=== PATIENT | female | born 1995 | race Caucasian/White ===

== ENCOUNTER 2020-11-29 13:54 | Outpatient (REF) | payer OTHER, SELFPAY | END 2020-11-29 13:55 | disposition home or self-care (01) | LOC: HO.LAB 13:54 | PROVIDERS: Visit Provider Nurse Practitioner Family | DX: J40 Bronchitis, not specified as acute or chronic (principal); Z20.822 Contact with and (suspected) exposure to COVID-19 | CPT/HCPCS: 36415; U0003 ==

== ENCOUNTER 2024-05-18 08:02 | Emergency (ER) | payer SELFPAY ==
--- NOTE | ~2024-05-18 | XR_ITS ---
EXAMINATION: XR CHEST CLINICAL INFORMATION: Cough COMPARISON: None available. TECHNIQUE: 2 views of the chest were obtained. FINDINGS: No significant abnormality is noted involving the heart, lungs, mediastinum, bony thorax or soft tissues. XR/XR chest 2V IMPRESSION: Unremarkable examination.
[2024-05-18 08:05] VITALS: BP 120/84; PULSE 87; RESP 16; TEMP 37; O2SAT 97; BMI 26.8
--- NOTE | 2024-05-18 08:09 | ECG_ITS ---
Test Reason : CHEST PAIN Blood Pressure : / mmHG Vent. Rate : 069 BPM Atrial Rate : 069 BPM P-R Int : 110 ms QRS Dur : 084 ms QT Int : 372 ms P-R-T Axes : 048 053 028 degrees QTc Int : 398 ms Sinus rhythm with sinus arrhythmia with short UT Otherwise normal ECG When compared with ECG of 01-MAY-2011 12:11, No significant change was found Referred By: Generic ED Physician Electronically Signed By:CYDNEY GRANT MD
[2024-05-18 08:46] LABS: IDNOW Serial# 08D9AD1C; Strep A Nucleic Acid Negative (Negative)
[2024-05-18 09:06] LABS: Influenza A PCR NEGATIVE (Negative); Influenza B PCR NEGATIVE (Negative); Resp Syncy Virus RNA Qual PCR NEGATIVE (Negative); SARS COV2 PCR INHOUSE NEGATIVE (Negative)
--- NOTE | 2024-05-18 11:23 | ED_ITS ---
HPI - URI/Sore Throat General Chief Complaint: Upper Respiratory Symptoms Stated Complaint: Chest pain, headache, cough Time Seen by Provider: 05/18/24 08:14 Source: patient and RN notes reviewed Mode of arrival: ambulatory Limitations: no limitations History of Present Illness ED Provider: Maye Muir PA-C HPI Narrative: This is a 29-year-old female, with a history of asthma, who presents emergency department with complaints of body aches, congestion, productive cough with green-colored phlegm, subjective fevers and chills x 3 days. Patient also endorsing headaches, sore throat as well as intermittent chest pain that only occurs with coughing. She denies any documented fevers, dizziness, blurred vision, shortness for breath, abdominal pain, nausea, vomiting or diarrhea. She did have an episode of wheezing which alleviated after using albuterol. She denies any sick contacts. No other complaints or concerns at this time. MD elicited complaint: cough, sore throat and nasal congestion Consistency: constant Description of mucous: green Able to tolerate fluids by mouth: Yes Exacerbating factors: nothing Relieving factors: nothing Associated symptoms: chest pain (Intermittent) Treatments prior to arrival: none Related Data Previous Rx's ?Medication ?Instructions ?Recorded azithromycin 250 mg tablet See Rx Instructions PO .COMPLEX #6 11/29/20 tabs Allergies Allergy/AdvReac Type Severity Reaction Status Date / Time No Known Allergies Allergy Verified 05/18/24 08:08 Review of Systems Review of Systems: Yes all other systems are reviewed and are negative Constitutional: Constitutional: Reports as per [facility] Past Medical History Attestation statement: The following information was validated with the patient. Social History Social History Advance Directives: No Advance Directives Information Provided: Yes Physical Exam Vital Signs: Vital Signs: Last Vital Signs Temp 98.6 F 05/18/24 08:05 Pulse 87 05/18/24 08:05 Resp 16 05/18/24 08:05 BP 120/84 05/18/24 08:05 Pulse Ox 97 05/18/24 08:05 O2 Del Method Room Air 05/18/24 08:05 BMI result Body Mass Index 26.8 Const: General: cooperative, comfortable and no acute distress Orientation/consciousness: patient oriented x3 Limitations: no limitations HEENT: Head: Yes normal to inspection, Yes normocephalic and Yes atraumatic Ears: hearing grossly normal bilaterally General nose exam: Normal external nose present Face and sinus: Yes normal facial exam Mouth: Normal oral and palatal mucosa present, oropharynx normal and moist mucous membranes Throat: Yes posterior oropharynx normal Eyes: General: appearance normal, both eyes and all related structures Eyelids: Yes eyelids normal Conjunctivae: conjunctivae normal Sclerae: sclerae normal Pupils: Equal, round and reactive pupils present EOM: EOMs intact bilaterally Neck: Neck: Yes normal visual inspection, Yes full ROM and Yes no lymphadenopa thy Lymphatic: no lymphadenopathy noted Chest: Chest palpation & inspection: normal inspection of the chest Resp: Effort & Inspection: normal respiratory effort and able to speak in complete sentences Auscultation: clear to auscultation bilaterally, no crackles, no rales, no rhonchi and no wheezes Cardio: Rate: regular rate Rhythm: regular rhythm Heart sounds: S1 normal heart sound present and S2 normal heart sound present GI: Other: Abdomen is soft, nontender, nondistended Inspection: Yes normal to inspection Skin: General skin exam: no rashes or lesions noted Trauma: no lacerations or abrasions Wounds: no wounds Neuro: General: patient oriented x3 and moves all extremities Cranial nerves: Yes Equal, round and reactive pupils present Extrem: General: Yes normal to inspection Right upper extremity: normal to inspection Left upper extremity: normal to inspection Right lower extremity: normal to inspection Left lower extremity: normal to inspection Course Reevaluation(s) Reevaluation #1: Chest x-ray returns, no acute consolidation or evidence of pneumonia seen. Viral swabs negative, negative strep. Symptoms likely viral in etiology. EKG nonischemic. Will discharge patient with conservative measures and given return precautions. Advised follow-up with PCP. Patient understands and agrees with plan. Patient stable for discharge. Time: 11:30 Medical Decision Making Medical Decision Making MDM Narrative: This is a 29-year-old female who presents emergency department with complaints of body aches, congestion, productive cough with green-colored sputum, subjective fevers and chills. She also endorses some chest pain which only o ccurs with cough. On arrival, vital signs within normal limits. Lungs clear to auscultation bilaterally. Differential diagnoses include bronchitis, pneumonia, URI, viral syndrome, costochondritis, reactive airway disease, asthma exacerbation. Less likely pulmonary embolism as she has no risk factors and she is PERC negative. Less likely ACS given no risk factors and pain exacerbated with cough only. Plan: Viral swabs, chest x-ray, EKG Differential Diagnosis Differential Diagnoses: The differential diagnosis associated with the presentation includes See above Lab Data MDM Lab Attestation statement: I reviewed the patient's lab results. Negative viral swabs, negative strep Labs: Lab Results 05/18/24 Range/Units 08:21 Influenza Type A (PCR) NEGATIVE (Negative) Influenza Type B (PCR) NEGATIVE (Negative) RSV RNA Qual (PCR) NEGATIVE (Negative) SARS-CoV-2 RNA (RT-PCR) NEGATIVE (Negative) S. pyogenes GrpA HEATHER Negative (Negative) Independent Interpretation I performed an independent interpretation of an: EKG Interpretation: EKG normal sinus rhythm with sinus arrhythmia at a ventricular rate of 69 beats per minute, short KS interval at 1:10 a.m., QT QTC 372/398. No ST elevation or depression. Radiology Impression Discussion of test interpretation with radiology: I have reviewed the radiologist's reading. Radiologist Impression: XR/XR chest 2V IMPRESSION: Unremarkable examination. Dictated By: Adama Blanchard MD Discharge Plan Discharge Clinical Impression: Upper respiratory infection Qualifiers: URI type: unspecified viral URI Qualified Code(s): J06.9 - Acute upper respiratory infection, unspecified Patient Disposition: Home, Self-Care Instructions: Upper Respiratory Infection (ED) Additional Instructions: You tested negative for COVID, RSV, flu, and strep throat. Your chest x-ray was normal. Your EKG was reassuring. Your symptoms are likely due to a virus. Drink plenty of fluids get plenty of rest. Alternate between ibuprofen and or Tylenol as needed for fevers and body aches. Continue taking at home albuterol inhaler as needed for symptoms. If any new or worsening symptoms occur including but not limited to chest pain, shortness of breath please return for re-evaluation. Prescriptions: No Action azithromycin 250 mg tablet See Rx Instructions PO .COMPLEX Qty: 6 0RF Rx Instructions: take 500 mg today (day 1), then 250 mg for 4 days (days 2-5) PO Print Language: Slovak
[2024-05-18 11:41] VITALS: BP 135/95; PULSE 68; RESP 18; TEMP 36.4; O2SAT 98
== END 2024-05-18 11:43 | disposition home or self-care (01) ==
PROVIDERS: Emergency Provider Emergency Medicine
DX: J06.9 Acute upper respiratory infection, unspecified (principal); R07.9 Chest pain, unspecified; R05.9 Cough, unspecified; R51.9 Headache, unspecified; J02.9 Acute pharyngitis, unspecified; R68.83 Chills (without fever)
CPT/HCPCS: 0241U; 71046; 87651; 93005; 99283

== ENCOUNTER → 2024-05-18 08:09 | Outpatient (BNV) | payer SELFPAY | PROVIDERS: Emergency Provider Emergency Medicine; Visit Provider Internal Medicine Cardiovascular Disease | DX: R07.9 Chest pain, unspecified (principal) | CPT/HCPCS: 93010 ==

== ENCOUNTER 2024-08-03 10:44 | Emergency (ER) | payer SELFPAY ==
[2024-08-03 11:17] VITALS: BP 120/86; PULSE 73; RESP 18; TEMP 36.5; O2SAT 99; BMI 26.6
--- NOTE | 2024-08-03 11:19 | ED_ITS ---
HPI - General Adult General Chief complaint: Headache Stated complaint: migraines Time Seen by Provider: 08/03/24 12:23 Related Data Previous Rx's ?Medication ?Instructions ?Recorded azithromycin 250 mg tablet See Rx Instructions PO .COMPLEX #6 11/29/20 tabs ibuprofen 400 mg tablet 400 mg PO Q6H PRN pain #20 tabs 08/03/24 Allergies Allergy/AdvReac Type Severity Reaction Status Date / Time No Known Allergies Allergy Verified 08/03/24 11:19 [facility] Social History Social History Advance Directives: No Advance Directives Information Provided: No Do you have a plan to hurt others: No Plan Physical Exam ED Vital Signs: Vital Signs - 24 hr 08/03/24 11:17 08/03/24 12:34 Temperature 97.7 F Pulse Rate 73 59 Respiratory Rate 18 16 Blood Pressure 120/86 106/70 Pulse Oximetry 99 98 Oxygen Delivery Method Room Air Room Air BMI result Body Mass Index 26.6 Course Course Course Narrative: This is an RME done by ANABEL Garcia: Additional HPI, ROS, PE not included below will be deferred to primary provider. 29yo F with hx of migraines presents with a 3 day hx of headache, N, decreased appetite. Denies fevers, chills, vision changes. Says this is like her previous migraines but she has not had one in a long time and needs medication Appearance: Alert.? Oriented X3.? No acute cardiopulmonary distress distress.?Appears uncomfortable Head: Normocephalic, atraumatic CVS: Pulses normal.? Respiratory: No respiratory distress.? Skin: ? Normal skin color. Neuro: Oriented X 3.. Medications Administered Discontinued Medications Generic Name Dose Route Start Last Admin Trade Name Freq PRN Reason Stop Dose Admin Diphenhydramine HCl 25 mg 08/03/24 11:20 08/03/24 12:28 Diphenhydramine Hcl 25 Mg Capsule PO 08/03/24 11:21 25 mg ONCE ONE Administration Ketorolac Tromethamine 15 mg 08/03/24 11:20 08/03/24 12:28 Ketorolac Tromethamine 15 Mg/Ml Vial IM 08/03/24 11:21 15 mg ONCE ONE Administration Metoclopramide HCl 10 mg 08/03/24 11:20 08/03/24 12:28 Metoclopramide Hcl 10 Mg Tablet PO 08/03/24 11:21 10 mg ONCE ONE Administration Discharge Plan Discharge Clinical Impression: Migraine Patient Disposition: Home, Self-Care Instructions: Migraine Headache (ED) Prescriptions: New ibuprofen 400 mg tablet 400 mg PO Q6H PRN (Reason: pain) Qty: 20 0RF No Action azithromycin 250 mg tablet See Rx Instructions PO .COMPLEX Qty: 6 0RF Rx Instructions: take 500 mg today (day 1), then 250 mg for 4 days (days 2-5) PO Referrals: [facility] [Physician] - 08/08/24 Stand Alone Forms: Work/School Release Print Language: Croatian
[2024-08-03] MEDS: diphenhydrAMINE HCL 25 MG CAPSULE PO (12:28)
[2024-08-03] MEDS: Metoclopramide HCl 10 MG TABLET PO (12:28)
[2024-08-03] MEDS: Ketorolac Tromethamine 15 MG/ML VIAL IM (12:28)
[2024-08-03 12:34] VITALS: BP 106/70; PULSE 59; RESP 16; O2SAT 98
--- NOTE | 2024-08-03 12:56 | ED.HA ---
HPI - Headache General Chief Complaint: Headache Stated Complaint: migraines Time Seen by Provider: 08/03/24 12:23 History of Present Illness HPI Narrative: Patient is a 29-year-old female presents today with having right-sided headache. The headache is dull it is associated with nausea. Symptoms seems to be made worse with noise or light. There is no focal weakness. Headache has been ongoing for about 3 days. Very similar to previous bouts of migraine. Patient tried to take some Motrin at home to no avail. Came to the ED for additional help. No coughing or congestion or upper respiratory symptoms no neck pain. No fever no chills. No diaphoresis. No gross change in vision. Related Data Previous Rx's ?Medication ?Instructions ?Recorded azithromycin 250 mg tablet See Rx Instructions PO .COMPLEX #6 11/29/20 tabs ibuprofen 400 mg tablet 400 mg PO Q6H PRN pain #20 tabs 08/03/24 Allergies Allergy/AdvReac Type Severity Reaction Status Date / Time No Known Allergies Allergy Verified 08/03/24 11:19 Review of Systems Review of Systems: Positive headache on the right side Yes all other systems are reviewed and are negative [facility] Past Medical History Attestation statement: The following information was validated with the patient. Social History Social History Advance Directives: No Advance Directives Information Provided: No Do you have a plan to hurt others: No Plan Physical Exam Vital Signs: Vital Signs: Last Vital Signs Temp 97.7 F 08/03/24 11:17 Pulse 59 08/03/24 12:34 Resp 16 08/03/24 12:34 BP 106/70 08/03/24 12:34 Pulse Ox 98 08/03/24 12:34 O2 Del Method Room Air 08/03/24 12:34 BMI result Body Mass Index 26.6 Appearance: Alert. Oriented X3. No acute distress. Eyes: Pupils equal, round and reactive to light. ENT: Pharynx normal. Neck: Normal inspection. Neck supple. No lymph nodes noted. No crepitus CVS: Normal heart rate and rhythm. Pulses normal. Normal S1 and S2 Respiratory: No respiratory distress. Breath sounds normal. No Wheezing. No rales Abdomen: Soft and nontender. No rigidity. No distention. good BS x4 Skin: Skin warm and dry. Normal skin color. Normal skin turgor. Extremities: No lower extremity edema. Neurovascular intact to all extremities. No Lacerations. No Rash Neuro: Oriented X 3. No motor deficit. No sensory deficit. Moving all extermities. No slurred speech Medications Administered Discontinued Medications Generic Name Dose Route Start Last Admin Trade Name Freq PRN Reason Stop Dose Admin Diphenhydramine HCl 25 mg 08/03/24 11:20 08/03/24 12:28 Diphenhydramine Hcl 25 Mg Capsule PO 08/03/24 11:21 25 mg ONCE ONE Administration Ketorolac Tromethamine 15 mg 08/03/24 11:20 08/03/24 12:28 Ketorolac Tromethamine 15 Mg/Ml Vial IM 08/03/24 11:21 15 mg ONCE ONE Administration Metoclopramide HCl 10 mg 08/03/24 11:20 08/03/24 12:28 Metoclopramide Hcl 10 Mg Tablet PO 08/03/24 11:21 10 mg ONCE ONE Administration Medical Decision Making Medical Decision Making [facility] Narrative: Patient neurologically intact. Was given a dose of Toradol Reglan from triage. Symptoms seems to have improved dramatically. There is no neck pain there is no fever there is no signs suggest meningitis. Had a history of the same headaches in the past. Patient neurologically intact. Will discharge patient home close follow-up on an outpatient basis Differential Diagnosis Differential Diagnoses: The differential diagnosis associated with the presentation includes Migraine headache, intracranial bleed, meningitis Admission/Observation Consideration of admission/observation: Escalation of care including admission/observation considered Lab Data [facility] Lab Attestation statement: I reviewed the patient's lab results. Discharge Plan Discharge Clinical Impression: Migraine Patient Disposition: Home, Self-Care Instructions: Migraine Headache (ED) Prescriptions: New ibuprofen 400 mg tablet 400 mg PO Q6H PRN (Reason: pain) Qty: 20 0RF No Action azithromycin 250 mg tablet See Rx Instructions PO .COMPLEX Qty: 6 0RF Rx Instructions: take 500 mg today (day 1), then 250 mg for 4 days (days 2-5) PO Referrals: [facility] [Physician] - 08/08/24 Stand Alone Forms: Work/School Release Print Language: Citizen [place]
[2024-08-03 13:10] VITALS: BP 106/70; PULSE 59; RESP 16; TEMP 36.9; O2SAT 98
== END 2024-08-03 13:11 | disposition home or self-care (01) ==
PROVIDERS: Emergency Provider Emergency Medicine Emergency Medical Services
DX: G43.909 Migraine, unspecified, not intractable, without status migrainosus (principal); Z79.899 Other long term (current) drug therapy
CPT/HCPCS: 96372; 99283; 99284; J1885

== ENCOUNTER 2024-12-07 13:05 | Emergency (ER) | payer OTHER, SELFPAY ==
--- NOTE | ~2024-12-07 | XR_ITS ---
CLINICAL HISTORY: chest pain EXAM: Two views of the chest. COMPARISON: CR/SR - XR CHEST 2V - 05/18/24 09:25 EDT FINDINGS: Normal cardiac, mediastinal, and hilar contours. Normal heart size. No pleural effusion or pneumothorax. Lungs are clear. No acute bone finding. IMPRESSION: 1. No acute cardiopulmonary process demonstrated. This document has been electronically signed by: Rogelio Woodward MD on 12/07/2024 19:16:03
--- NOTE | ~2024-12-07 | US_ITS ---
EXAMINATION: US TRIPLEX LOWER EXTREMITY, LEFT CLINICAL INFORMATION: Pain left lower extremity. COMPARISON: None available. TECHNIQUE: Color-flow triplex imaging with spectral analysis and compression Doppler were performed on the left lower extremity. FINDINGS: Respiratory variation, normal compression and augmented flow are noted throughout the left lower extremity. The visualized common femoral vein, superficial femoral vein, profunda femoral vein, popliteal vein and midcalf peroneal and posterior tibial venous segments show no evidence of deep venous thrombosis. There is no Oneill's cyst. US/US venous duplex LE LT IMPRESSION: No evidence of deep venous thrombosis involving the left lower extremity. Electronically signed by: Vitor Kahn MD 12/07/2024 03:10 PM EST
--- NOTE | 2024-12-07 13:08 | ECG_ITS ---
Test Reason : chest pain Blood Pressure : */* mmHG Vent. Rate : 60 BPM Atrial Rate : 60 BPM P-R Int : 108 ms QRS Dur : 82 ms QT Int : 392 ms P-R-T Axes : 62 60 29 degrees QTcB Int : 392 ms Sinus rhythm with short CA Otherwise normal ECG When compared with ECG of 18-May-2024 08:14, No significant change was found Referred By: Leonides Menard Electronically Signed By: El Gutierrez
[2024-12-07 14:10] VITALS: BP 120/72; PULSE 57; RESP 18; TEMP 37.9; O2SAT 100; BMI 23.6
--- NOTE | 2024-12-07 14:11 | ED.GENADULT ---
HPI - General Adult General Chief complaint: Chest Pain Stated complaint: Chest Pain SOB Time Seen by Provider: 12/07/24 17:30 Source: patient Mode of arrival: ambulatory Limitations: no limitations History of Present Illness HPI narrative: This is an otherwise healthy 29-year-old woman who presents for evaluation of chest pain. Patient states that she has been feeling unwell over the last several days. Patient reports having chest pain radiating to her left shoulder and arm. Patient states pain is random in nature. She states the pain is not worsened with exertion. He states no associated traumatic injury to her left side. Patient states that she also noted some intermittent pain behind her left knee. She states no trauma to her left knee as well. She states pain in her chest is not associated with inspiration or vomiting. She states no diaphoresis, lightheadedness or loss of consciousness. She states no previous DVT or PE. She states no hemoptysis. She states no fevers, cough or sputum production. She states no chronic medications or hormone replacement. Related Data Previous Rx's ?Medication ?Instructions ?Recorded azithromycin 250 mg tablet See Rx Instructions PO .COMPLEX #6 11/29/20 tabs ibuprofen 400 mg tablet 400 mg PO Q6H PRN pain #20 tabs 08/03/24 Allergies Allergy/AdvReac Type Severity Reaction Status Date / Time No Known Allergies Allergy Verified 12/07/24 14:12 Review of Systems Review of Systems: ROS as per [facility] Social History Social History Advance Directives: No Advance Directives Information Provided: Yes Do you have a plan to hurt others: No Plan Physical Exam ED Vital Signs: Vital Signs - 24 hr 12/07/24 14:10 12/07/24 16:37 12/07/24 19:05 Temperature 100.2 F 98.2 F 98.1 F Pulse Rate 57 69 62 Respiratory Rate 18 18 20 Blood Pressure 120/72 122/81 120/72 Pulse Oximetry 100 100 100 Oxygen Delivery Method Room Air Room Air Room Air BMI result Body Mass Index 23.6 Gen: NAD, AOx3 HEENT: NCAT, EOMI, normal conjunctiva CV: RRR, no murmurs appreciated Pulm: CTAB, no increased work of breathing GI: Soft, NTND, no rebound, guarding or rigidity MSK: No asymmetrical calf edema/erythema/TTP Neuro: Grossly non focal Course Course Course Narrative: RME, this is a rapid medical exam performed by Chung Menard please refer to primary provider for complete H&P- 29-year-old female presents for evaluation of chest pain that radiates to her right arm as well as left calf pain and swelling for the last few days. She is currently on clindamycin suppository and doxycycline for bacterial vaginosis. Medical Decision Making Medical Decision Making [facility] Narrative: Differential diagnosis includes, but is not limited to DVT, pneumothorax, anxiety. Patient is afebrile and hemodynamically stable on room air. Exam is benign and reassuring. I reviewed the patient's labs, EKG, chest x-ray and ultrasound results as below. On re-examination, patient is well-appearing and in no acute distress. ?Patient states symptoms have resolved. ?There is no indication for further emergent evaluation in this otherwise well-appearing patient as above. ?Patient is provided written and verbal instructions, educational materials, recommendations for outpatient follow-up, strict return precautions and teach back is performed. ?Patient states understanding and agreement with plan of care. ?Patient is discharged home in stable and improved condition. Admission/Observation Consideration of admission/observation: Escalation of care including admission/observation considered Lab Data [facility] Lab Attestation statement: I reviewed the patient's lab results. I independently reviewed and interpreted the patient's CBC, coagulation studies, metabolic panel and troponin, which are benign and reassuring. 12/07/24 15:26 12/07/24 15:26 Labs: Lab Results 12/07/24 Range/Units 15:26 WBC 7.0 (4.8-10.8) X10*3/uL RBC 4.34 (4.20-5.50) X10*6/uL Hgb 13.7 (12.0-16.0) g/dl Hct 39.3 (37.0-47.0) % MCV 90.6 (80.0-98.0) fL MCH 31.6 (27.0-33.0) pg MCHC 34.9 (31.0-35.0) g/dl RDW 11.8 (11.0-16.0) % Plt Count 254 (160-400) X10*3/uL MPV 9.5 (9.4-12.3) fL Immature Gran % (Auto) 0.1 (0.0-0.4) % Neut % (Auto) 62.9 (45-73) % Lymph % (Auto) 27.3 (20-40) % [place] % (Auto) 8.5 (2-11) % Eos % (Auto) 0.6 (0-4) % Baso % (Auto) 0.6 (0-2) % Lymph # (Auto) 1.9 (1.2-4.9) X10*3/uL [place] # (Auto) 0.6 (0.1-1.2) X10*3/uL Eos # (Auto) 0.0 (0.0-0.4) X10*3/uL Baso # (Auto) 0.0 (0.0-0.2) X10*3/uL Abs Immat Gran (auto) 0.01 (0.00-0.03) X10*3/uL Absolute Neuts (auto) 4.4 (2.0-8.3) x10*3/uL Absolute Nucleated RBC 0.000 (0.0-0.012) X10*3/uL Nucleated RBC % (auto) 0.0 (0.0-0.2) /100WBC PT 13.3 H (10.9-12.4) SEC INR 1.1 (0.9-1.1) Sodium 139 (135-145) mmol/L Potassium 4.1 (3.3-5.1) mmol/L Chloride 107 (96-108) mmol/L Carbon Dioxide 23 (22-29) mmol/L Anion Gap 13 (12-20) BUN 10 (9-16) mg/dL Creatinine 0.76 (0.5-1.4) mg/dL Estim Creat Clear Calc 98.3 Estimated GFR > 60 Random Glucose 86 (60-115) mg/dL Calcium 9.7 (8.4-10.2) mg/dL Total Bilirubin 1.9 H (0.0-1.0) mg/dL AST 27 (5-31) U/L ALT 30 (0-31) U/L Alkaline Phosphatase 55 (39-117) U/L Troponin I High Sens < 2.7 (<3.5-17.0) ng/L Total Protein 8.0 (6.5-8.0) g/dL Albumin 4.4 (3.5-5.0) g/dL Independent Interpretation I performed an independent interpretation of an: EKG and Plain X-Ray Interpretation: I independently reviewed and interpreted the patient's EKG, which demonstrates a sinus rhythm at 60 beats per minute, TX 108, QRS 82, QTC 392, no STEMI I independently reviewed and interpreted the patient's chest x-ray, which demonstrates no pneumothorax, pleural effusion or focal consolidation Radiology Impression Discussion of test interpretation with radiology: I have reviewed the radiologist's reading. Radiologist Impression: US/US venous duplex LE LT IMPRESSION: No evidence of deep venous thrombosis involving the left lower extremity. Electronically signed by: Vitor Kahn MD 12/07/2024 03:10 PM EST Dictated By: Vitor Kahn MD Signed By: <Electronically signed by Vitor Kahn MD in [place]> 12/07/24 1510 IMPRESSION: 1. No acute cardiopulmonary process demonstrated. This document has been electronically signed by: Rogelio Woodward MD on 12/07/2024 19:16:03 Dictated By: Rogelio Woodward MD Signed By: <Electronically signed by Rogelio Woodward MD in [place]> 12/07/24 1917 Discharge Plan Discharge Clinical Impression: Chest pain Patient Disposition: Home, Self-Care Instructions: Chest Pain (ED) Additional Instructions: You were seen and evaluated in the emergency room. Your vital signs were normal and you did not have fever. ? Your blood work, EKG, ultrasound of the leg and chest x-ray were normal. Please follow-up with your primary care doctor in the next 1-2 weeks after your emergency room visit. Please return to the emergency room if you develop any worsening symptoms. Prescriptions: No Action ibuprofen 400 mg tablet 400 mg PO Q6H PRN (Reason: pain) Qty: 20 0RF azithromycin 250 mg tablet See Rx Instructions PO .COMPLEX Qty: 6 0RF Rx Instructions: take 500 mg today (day 1), then 250 mg for 4 days (days 2-5) PO Print Language: Chilean
[2024-12-07 15:31] LABS: MANUAL DIFF FLAG NO
[2024-12-07 15:33] LABS: Basophils Percent Auto 0.6 % (0-2); Eosinophils Percent Auto 0.6 % (0-4); Hematocrit 39.3 % (37.0-47.0); Hemoglobin 13.7 g/dl (12.0-16.0); Imm Gran Abs Auto 0.01 X10*3/uL (0.00-0.03); Imm Gran Pct Auto 0.1 % (0.0-0.4); Lymphocytes Absolute Auto 1.9 X10*3/uL (1.2-4.9); Lymphocytes Percent Auto 27.3 % (20-40); Mean Corpuscular HGB Conc 34.9 g/dl (31.0-35.0); Mean Corpuscular Hemoglobin 31.6 pg (27.0-33.0); Mean Corpuscular Volume 90.6 fL (80.0-98.0); Mean Platelet Volume 9.5 fL (9.4-12.3); Monocytes Absolute Auto 0.6 X10*3/uL (0.1-1.2); Monocytes Percent Auto 8.5 % (2-11); Neutrophils Absolute Auto 4.4 x10*3/uL (2.0-8.3); Neutrophils Percent Auto 62.9 % (45-73); Platelet Count 254 X10*3/uL (160-400); Red Blood Count 4.34 X10*6/uL (4.20-5.50); Red Cell Distribution Width 11.8 % (11.0-16.0)
[2024-12-07 15:43] LABS: INTERNATIONAL NORM RATIO 1.1 (0.9-1.1); Prothrombin Time 13.3 SEC (10.9-12.4)
[2024-12-07 15:50] LABS: Alanine Aminotransferase 30 U/L (0-31); Albumin Level 4.4 g/dL (3.5-5.0); Anion Gap 13 (12-20); Aspartate Amino Transferase 27 U/L (5-31); Bilirubin Total 1.9 mg/dL (0.0-1.0); Blood Urea Nitrogen 10 mg/dL (9-16); Calcium 9.7 mg/dL (8.4-10.2); Carbon Dioxide 23 mmol/L (22-29); Chloride 107 mmol/L (96-108); Creatinine Clr Calc Pharmacy 98.3; Estimated Glomerular Filt Rate > 60; Glucose Random 86 mg/dL (60-115); Potassium 4.1 mmol/L (3.3-5.1); Sodium 139 mmol/L (135-145)
[2024-12-07 15:57] LABS: Troponin-I High Sensitivity < 2.7 ng/L (<3.5-17.0)
[2024-12-07 16:07] LABS: Alkaline Phosphatase 55 U/L (39-117)
[2024-12-07 16:37] VITALS: BP 122/81; PULSE 69; RESP 18; TEMP 36.8; O2SAT 100
[2024-12-07 19:05] VITALS: BP 120/72; PULSE 62; RESP 20; TEMP 36.7; O2SAT 100
[2024-12-07 19:46] VITALS: BP 120/72; PULSE 62; RESP 20; TEMP 36.7; O2SAT 100
== END 2024-12-07 19:53 | disposition home or self-care (01) ==
PROVIDERS: Physician Assistant; Emergency Provider Emergency Medicine; PCP Nurse Practitioner Family
DX: R07.89 Other chest pain (principal); R06.02 Shortness of breath; R60.0 Localized edema; Z79.899 Other long term (current) drug therapy
CPT/HCPCS: 36415; 71046; 80053; 84484; 85025; 85610; 93005; 93971; 99284; 99285

== ENCOUNTER → 2024-12-07 13:08 | Outpatient (BNV) | payer OTHER, SELFPAY | PROVIDERS: Emergency Provider Emergency Medicine; PCP Nurse Practitioner Family; Visit Provider Internal Medicine Cardiovascular Disease | DX: R07.9 Chest pain, unspecified (principal) | CPT/HCPCS: 93010 ==

== ENCOUNTER → 2024-12-07 14:11 | Outpatient (BNV) | payer SELFPAY | PROVIDERS: Visit Provider Radiology Diagnostic Radiology | DX: M79.662 Pain in left lower leg (principal); R07.9 Chest pain, unspecified | CPT/HCPCS: 71046; 93971 ==

== ENCOUNTER 2025-11-08 09:12 | Emergency (ER) | payer OTHER, SELFPAY ==
--- OUTSIDE RECORDS SUMMARY | 2025-10-06 05:30 | XMS_ITS ---
Author Organization [facility] Address [address] [place] [address] [place] [address] Care Team Providers Care Cycle Touring Guide Name Role Phone GABRIELA STOCKTON Unavailable [phone] REASON FOR VISIT STI Screen (Symptoms) Social History Sex Assigned At : Social History Observation Description Sex Assigned At Female Encounters Encounter Location Date Provider Diagnosis [facility] [address] [place], [place] [id number] GABRIELA STOCKTON Plan Of Treatment No Information Progress Notes * Candie BUITRAGO MDOB: 1995 (30 yo F)Acc No.[id number]:10/06/2025 Progress Notes Patient: Braeden Candie Zhu Provider: Sameera STOCKTON :1995 A ge:30 Y S ex:Female Date:10/06/2025 Address:[address] [place], [place] [id number] Subjective: * Chief Complaints: * S TI Screen (Symptoms) Billing Information: * Procedure Codes: * Electronic signature of ANDREIA STOCKTON CNM on 11/08/2025 at 01:10 PM EST Sign off status: Pending * Provider: Sameera STOCKTON Date: 12/06/2024 Generated for Printi ng/Farejig/eTransmitting on: 01/09/2025 01:10 PM EST
[2025-11-08 09:27] VITALS: BP 130/61; PULSE 72; RESP 20; TEMP 36.8; O2SAT 98; BMI 23.3
[2025-11-08 10:17] LABS: Resp Syncy Virus RNA Qual PCR NEGATIVE (Negative); SARS COV2 PCR INHOUSE NEGATIVE (Negative)
--- NOTE | 2025-11-08 10:38 | ED.GENADULT ---
HPI - General Adult General Chief complaint: General Medical Stated complaint: Flu like symptoms x4 days Time Seen by Provider: 11/08/25 10:38 Source: patient, RN notes reviewed and old records reviewed Mode of arrival: ambulatory Limitations: no limitations History of Present Illness ED Provider: Hayden [facility] narrative: Patient is a 30-year-old female presenting to the emergency department with complaint of body aches, sweats, headache, nausea, vomiting, diarrhea and nonproductive cough since Thursday. Denies any known sick contacts. States that she works for [employer] and has been unable to work due to her symptoms. complaint: Fever, body aches Onset (ago): day(s) Related Data Previous Rx's ?Medication ?Instructions ?Recorded azithromycin 250 mg tablet See Rx Instructions PO .COMPLEX #6 11/29/20 tabs ibuprofen 400 mg tablet 400 mg PO Q6H PRN pain #20 tabs 08/03/24 Allergies Allergy/AdvReac Type Severity Reaction Status Date / Time No Known Allergies Allergy Verified 11/08/25 09:29 Review of Systems Review of Systems: As per HPI Yes all other systems are reviewed and are negative Constitutional: Constitutional: Reports as per HPI REPLACED BY [facility] Social History Social History Alcohol intake: current Alcohol intake frequency: holidays/special occasions only Substance Use Type: Marijuana Advance Directives: No Advance Directives Information Provided: Yes Physical Exam ED Vital Signs: Vital Signs - 24 hr 11/08/25 09:27 Temperature 98.3 F Pulse Rate 72 Respiratory Rate 20 Blood Pressure 130/61 Pulse Oximetry 98 Oxygen Delivery Method Room Air BMI result Body Mass Index 23.3 Vital signs have been reviewed and appear to be correct. Blood pressure normal. Heart rate normal. Respiratory rate normal. Temperature normal. Oxygen saturation normal. Const General: cooperative and no acute distress Orientation/consciousness: oriented to person, oriented to place, oriented to time and patient oriented x3 Limitations: no limitations HENMT Head: Yes normocephalic and Yes atraumatic Ears: external ears normal General nose exam: Normal external nose present Face and sinus: Yes face symmetric Mouth: oropharynx normal and moist mucous membranes Throat: Yes uvula midline Eyes Pupils: Equal, round and reactive pupils present Neck Neck: Yes normal visual inspection and Yes supple Resp Effort & Inspection: normal respiratory effort and able to speak in complete sentences Auscultation: clear to auscultation bilaterally Cardio Rate: regular rate Rhythm: regular rhythm Heart sounds: S1 normal heart sound present and S2 normal heart sound present GI Palpation (GI): Soft to palpation and nontender Auscultation: normoactive bowel sounds General: Yes no CVA tenderness Back/Spine/Pelvis Back: no CVA tenderness Skin General skin exam: elasticity normal and turgor normal Neuro General: oriented to person, oriented to place, oriented to time, patient oriented x3, moves all extremities, no focal motor deficits and CN's II-XI intact bilaterally Cranial nerves: Yes Equal, round and reactive pupils present Cognition (Neuro): normal cognition Extrem General: Yes full ROM, Yes no pedal edema and Yes no calf tenderness Psych Mental Status: mental status grossly normal Affect: normal affect Thought process: Normal thought process present Medications Administered Discontinued Medications Generic Name Dose Route Start Last Admin Trade Name Freq PRN Reason Stop Dose Admin Ondansetron HCl 4 mg 11/08/25 09:30 11/08/25 09:32 Ondansetron Odt 4 Mg Tab.Rapdis TRANSLINGU 11/08/25 09:31 4 mg ONCE ONE Administration Medical Decision Making Medical Decision Making [facility] Narrative: Patient is a 30-year-old female presenting to the emergency department with complaint of body aches, sweats, headache, nausea, vomiting, diarrhea and nonproductive cough since Thursday. On exam patient is awake, A+Ox3, VS WNL, afebrile, normal neurological exam without focal deficits, physical exam findings as above. Given reported symptoms and physical exam findings, initial differential includes but is not limited to viral illness, COVID, flu,RSV. Viral serology positive for influenza A. Patient updated on results and all questions answered. Advised adequate rest, adequate fluid intake, alternate Tylenol and ibuprofen as needed for fever/discomfort. Patient provided with excuse note for work. Return precautions discussed. Follow up with PCP as needed. Patient verbalized understanding of and agreement with plan. Differential Diagnosis Differential Diagnoses: The differential diagnosis associated with the presentation includes as per [facility] Admission/Observation Consideration of admission/observation: Escalation of care including admission/observation considered Patient would have been admitted to the hospital and transferred to appropriate facility had their clinical presentation warranted hospital admission. Lab Data [facility] Lab Attestation statement: I reviewed the patient's lab results. as per [facility] Labs: Lab Results 11/08/25 Range/Units 09:35 Influenza Type A (PCR) POSITIVE A (Negative) Influenza Type B (PCR) NEGATIVE (Negative) RSV RNA Qual (PCR) NEGATIVE (Negative) SARS-CoV-2 RNA (RT-PCR) NEGATIVE (Negative) External Record Review External record reviewed: Inpatient record, Office record and Outpatient record Discharge Plan Discharge Clinical Impression: Influenza A Patient Disposition: Home, Self-Care Instructions: Influenza (DC), Flu Shot (Vaccine) for Adults (ED), Droplet Precautions (ED) Additional Instructions: You were evaluated in the emergency department today for sore throat, cough and body aches. Your flu test was positive. You should isolate at home for another 3 days and continue to wear mask while symptomatic after that. Your symptoms should resolve over time with rest and fluids. You can take 650 mg Tylenol or 600 mg ibuprofen every 6 hours as needed for fever or pain. Please follow-up with your primary care provider for any ongoing symptoms. Return to the emergency department if you develop worsening pain, fever not controlled with Tylenol and ibuprofen, chest pain, dizziness or lightheadedness, or any other concerning symptoms. Prescriptions: No Action ibuprofen 400 mg tablet 400 mg PO Q6H PRN (Reason: pain) Qty: 20 0RF azithromycin 250 mg tablet See Rx Instructions PO .COMPLEX Qty: 6 0RF Rx Instructions: take 500 mg today (day 1), then 250 mg for 4 days (days 2-5) PO Stand Alone Forms: Work/School Release Print Language: Upper Sorbian
[2025-11-08 10:47] VITALS: BP 130/61; PULSE 72; RESP 20; TEMP 36.8; O2SAT 98
--- OUTSIDE RECORDS SUMMARY | 2025-11-08 13:10 | XMS_ITS | Clinical Summary ---
Author Organization [facility] [address] [place] [address] [place] [phone] Phone Care Team Providers Care Jalousies Installer Name Role Phone Tobias Juarez MD Primary Care Provider Allergies No known active allergies Medications metroNIDAZOLE (FLAGYL) 500 mg tablet Take 1 tablet (500 mg total) by mouth every 12 (twelve) hours. for 7 days 5 Active polyethylene glycol (Golytely) 236-22.74-6.74 -5.86 gram solution Take 4L by mouth once for one dose. May substitue any PEG. Starting at 2PM the day before your procedure drink 1 8oz glasses at your own pace until you complete half of the gallon. Finish 2nd half of the gallon at 8PM. 4000 mL 5 Active bisacodyL (DULCOLAX) 5 mg EC tablet Take 2 tablets by mouth right before beginning bowel prep. See instructions provided by the office 2 tablet 5 Active Active Problems Problem Noted Date Diagnosed Date Palpitations 04/12/2025 Asthma, exercise induced 04/12/2025 Hemorrhage in early 03/01/2025 Assessment & Plan (03/01/2025 5:28 PM EDT): I counseled Poonam that her quants decreasing in the setting of bleeding suggests she is likely having a miscarriage. This in any case would not be a likely viable . Since we never saw a yolk sac or FP, cannot confirm yet that this is an IUP. Recommended repeat US tomorrow and repeat quant on Thursday to ensure IUP without evidence of ectopic and that quant continues to decrease and not plateau. Discussed possible need for medical management or urgent or emergent surgery in the setting of ectopic and options for observation, misoprostol, and D&C if it appears to be an IUP. I gave her precautions until we have this better understood. Will obtain T&S on Thursday as well. I discussed etiology and incidence of miscarriage, and answered all patient questions. Gave emotional support and referred to [facility]. Asthma 12/20/2021 Crohn's disease 12/20/2021 Depression 12/20/2021 Generalized anxiety disorder 12/20/2021 Migraine with aura 12/20/2021 LGSIL of cervix of undetermined significance 03/2021 Anxiety 08/09/2018 Overview (04/12/2025): 2017 trial of effexor - jittery and anxious Remotely tried amitriptyline, zoloft, and fluoxetine all with intolerable side effects Exercise-induced bronchoconstriction 03/19/2018 Moderate episode of recurrent major depressive d isorder 03/19/2018 Migraine with aura and witho ut status migrainosus, not intractable 03/19/2018 Renal stones 11/23/2013 Immunizations Immunization Administration Dates Next Due Influenza trivalent, with pr eservative (Fluzone; Afluria) 6mo and older 09/08/2017 Surgical History Surgery Date Site/Laterality Comments COLONOSCOPY Medical History Medical History Date Comments Migraine with aura DX:Migraine w ith aura Generalized anxiety disorder DX: Generalized anxiety disorder Asthma DX:Asthma Crohn's disease ([facility] V24, [facility] V28) DX:Crohn's disease ([facility]) Depression DX:Depression Renal stones 2013 DX:Renal stones Family History Medical History Relation Name Comments Suicide Completion Brother Hyperlipidemia Father preDM Diabetes Maternal Grandfather HTN Hypertension Maternal Grandmother Brain Aneurysm Mother preDM, HTN No Known Problems Paternal Grandfather No Known Problems Paternal Grandmother No Known Problems Sister Breast cancer Neg Hx Colon cancer Neg Hx Ovarian cancer Neg Hx Relation Name Status Comments Brother Father Alive Maternal Grandfather Maternal Grandmother Alive Mother Alive Paternal Grandfather Paternal Grandmother Sister Alive Social History Tobacco Use Types Packs/Day Years Used Date Smoking Tobacco: Former Smokeless Tobacco: Never Tobacco Cessation:Counseling Given: Not Answered Alcohol Use Standard Drinks/Week Comments Yes 0 (1 standard drink = 0.6 oz pur e alcohol) social Interpersonal Safety Answer Date Record ed Physical Abuse Unrecognized value 08/02/2025 Verbal Abuse Unrecognized value 08/02/2025 Comments No Sex and Gender Information Value Date Recorded Sex Assigned at Female 08/02/2025 8:45 AM EDT Legal Sex Female 4:15 AM EST Gender Identity Female 08/02/2025 8:45 AM EDT Sexual Orientation Not on file 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 Para Term AB IAB SAB Ectopic Multiple Livin g Live Births 1 0 0 0 0 0 0 0 Date Outcome GA Total Labor Labor/2nd/3rd Weight Sex Type Anes PTL Hawa A1 A5 Name Clin Last Filed Vital Signs Vital Sign Reading Time Taken Comments Blood Pressure 118/79 08/02/2025 10:40 AM EDT Pulse 88 08/02/2025 10:40 AM EDT Temperature 36.1 C (97 F) 08/02/2025 10:20 AM EDT Respiratory Rate 18 08/02/2025 10:40 AM EDT Oxygen Saturation 99% 08/02/2025 10:40 AM EDT Inhaled Oxygen Concentration - - Weight 68 kg (150 lb) 08/02/2025 9:37 AM EDT Height 165.1 cm (5' 5 ) 08/02/2025 9:37 AM EDT Body Mass Index 24.96 08/02/2025 9:37 AM EDT Plan of Treatment Health Maintenance Due Date Last Done Comments Pneumococcal Vaccine: Pediatrics (0 to 5 Years) and At-Risk Patients (6 to 49 Years) (1 of 2 - PCV) 2014 Social Influencers of Health Screening 10/26/2022 Depression Screening 11/23/2024 COVID-19 Vaccine ( season) 2025 04/20/2021, 03/30/2021 Influenza Vaccine (#1) 2025 , 09/01/2018, 09/08/2017 Cervical Cancer Screening: HPV 08/13/2026 08/13/2021 DTaP,Tdap,and Td Vaccines (8 - Td or Tdap) 09/02/2029 09/02/2019, 07/08/2013, 04/16/2007, Additional history exists Cholesterol Screening (Lipid Panel) 03/24/2030 03/24/2025 RSV Immunization Adult Patients (1 - 1-dose 75+ series) 2070 HIB Vaccines Completed 06/23/1996, 11/1994, 1995, Additional history exists IPV Vaccines Completed 01/21/1999, 11/1994, 1995, Additional history exists Hepatitis B Vaccines Completed 08/23/1999, 04/23/1996, 1995 MMR Vaccines Completed 01/22/2000, 06/23/1996 Varicella Vaccines Completed 06/02/2008, 01/21/1999 Meningococcal ACWY Vaccine Aged Out 06/08/2008 N o longer eligible based on patient's age to complete this topic HPV Vaccines Completed 09/06/2010, 10/23, 09/08/2009 Hepatitis A Vaccines Aged Out 06/16/2014 No long er eligible based on patient's age to complete this topic HIV Screening Completed 08/13/2021 Hepatitis C Screening Completed 08/13/2021 Meningococcal B Vaccine Aged Out No l onger eligible based on patient's age to complete this topic RSV Immunization Patients Under 20 months Aged Out No longer eligible based on patient's age to complete this topic Procedures Procedure Name Priority Date/Time Associated Diagnosis Comments LIPID PANEL WITH REFLEX TO DIRECT LDL Routine 03/24/2025 3:41 PM EDT Encounter for screening for lipid disorder HPV Routine 08/13/2021 HEPATITIS C SCREENING Routine 08/13/2021 HIV SCREENING Routine 08/13/2021 from Last 3 Months or Most Recently Relevant to Health Maintenance Results * Lipid panel with reflex to direct LDL (03/24/2025 3:41 PM EDT) Cholesterol 168 0 - 200 mg/dL LAB CHEMISTRY METHOD 03/24/2025 7:07 PM EDT [facility] Triglycerides 73 0 - 150 mg/dL LAB CHEMISTRY METHOD 03/24/2025 7:07 PM T [facility] HDL 68 >=40 mg/dL LAB CHEMISTRY METHOD 03/24/2025 7:07 PM EDT [facility] LDL Calculated 85 0 - 100 mg/dL LAB CHEMISTRY METHOD 03/24/2025 7:07 PM EDT [facility] VLDL Cholesterol Michael 14.6 mg/dL LAB CHEMISTRY METHOD 03/24/2025 7:07 PM EDT [facility] Non HDL Chol. (LDL+VLDL) 100 <145 mg/dL LAB CHEMISTRY METHOD 03/24/2025 7:07 PM [facility] Chol/HDL Ratio 2.5 0.0 - 4.4 LAB CHEMISTRY METHOD 03/24/2025 7:07 PM EDT [facility] Blood Venous blood specimen / Unknown Venipuncture / Unknown 03/24/2025 3:41 PM EDT 03/24/2025 3:41 PM EDT [facility] BLOOD ORDERABLES Final Resul t [facility] [address] [place] [address], [place] [phone] * Cervical Cancer Screening: HPV (08/13/2021) [facility] Cervical Cancer Screening: HPV no interpretation , abstracted Historical Provider HEALTH MAINTENANCE Final Result * HIV Screening (08/13/2021) [facility] HIV Screening abstracted Historical Provider HEALTH MAINTENANCE Final Result * Hepatitis C Screening (08/13/2021) [facility] Hepatitis C Screening abstracted Historical Provider HEALTH MAINTENANCE Final Result from Last 3 Months or Most Recently Relevant to Health Maintenance Insurance [facility] [place] [phone] Care Teams Jalousies Installer Relationship Specialty Start Date End Date Tobias Juarez MD [address] [place] [phone] PCP - General Internal Medicine 02/16/25
--- OUTSIDE RECORDS SUMMARY | 2025-11-08 13:10 | XMS_ITS | Clinical Summary ---
Author Organization [facility] Address [address] [place] [phone] Phone Care Team Providers Care Concrete Rod Buster Name Role Phone Pcp, Unknown Primary Care Provider Unavailabl e Allergies No known active allergies Medications albuterol (PROAIR HFA) 90 mcg/actuation inhaler 2 puffs as needed 6 Active levonorgestrel (LAMONT) 14 mcg/24 hour (3 years) IUD Active SUMAtriptan (IMITREX) 50 MG tablet 1 po prn, repeat in 2 hrs if needed, max 2 / 24 hrs 6 tablet 1 8 Active Additional Information Patient not taking.Reported on 09/01/2018 cyclobenzaprine (FLEXERIL) 10 MG tablet Take 10 mg by mouth 2 (two) times a day as needed. Active Active Problems Problem Noted Date Diagnosed Date Anxiety 08/09/2018 Overview (08/09/2018): 2017 trial of effexor - jittery and anxious Remotely tried amitriptyline, zoloft, and fluoxetine all with intolerable side effects Crohn's disease 03/19/2018 Exercise-induced bronchoconstriction 03/19/2018 Migraine with aura and witho ut status migrainosus, not intractable 03/19/2018 Moderate episode of recurrent major depressive d isorder 03/19/2018 Immunizations Immunization Administration Dates Next Due DTaP 01/21/1999, 7,1995,06/23,1995 HPV,quadrivalent 09/06/2010,11/09/2009, 9 Hepatitis A, Adult 06/16/2014 Hepatitis B Adult 08/23/1999,04/23/1996,02/09/19 95 Hib, unspecified formulation 06/23/1996, 1995,1995,04/23 IPV 01/21/1999, 5,1995,04/23 Influenza Quadrivalent Prese rvative Free IM 09/01/2018 MMR 01/22/2000,06/23/1996 Meningococcal MCV4P 06/08/2008 Td (adult),2 Lf Tetanus Toxo id, PF, Adsorbed 04/16/2007 Tdap 07/08/2013 Varicella 06/02/2008,01/21/1999 Social History Tobacco Use Types Packs/Day Years Used Date Smoking Tobacco: Never Smokeless Tobacco: Never Education Answer Date Recorded Are you interested in more education? Not on joseph e 03/20/2023 Are you concerned about learning? Not on file 03/20/2023 No 03/20/2023 No 03/20/2023 Digital Access Answer Date Recorded No 04/20/2023 No 04/20/2023 No 04/20/2023 Reliable internet access at home? Not on file 04/20/2023 Device with a working camera? Not on file Comments Unknown Sex and Gender Information Value Date Recorded Sex Assigned at Not on file Legal Sex Female 4:47 PM EDT Gender Identity Not on file Sexual Orientation Not on file Last Filed Vital Signs Vital Sign Reading Time Taken Comments Blood Pressure 117/79 01/27/2020 7:31 PM EST Pulse 77 01/27/2020 7:31 PM EST Temperature 36.7 C (98 F) 01/27/2020 7:31 PM EST Respiratory Rate 16 01/27/2020 7:31 PM EST Oxygen Saturation 99% 01/27/2020 7:31 PM EST Inhaled Oxygen Concentration - - Weight 74.8 kg (165 lb) 01/27/2020 7:31 PM EST Height 168.3 cm (5' 6.25 ) 09/25/2018 11:19 AM E DT Body Mass Index 26.43 09/25/2018 11:19 AM EDT Plan of Treatment Health Maintenance Due Date Last Done Comments DEPRESSION SCREENING 2007 HEPATITIS C SCREENING 2013 HIV ONE-TIME SCREENING (18-65 YEARS) 2013 PAP SMEAR 02/10/2016 SMOKING STATUS SCREENING (Once After 26 Yrs) 2021 Adult Td,Tdap Booster 07/08/2023 07/08/2013, 007 INFLUENZA VACCINE (#1) 2025 09/01/2018 COVID-19 VACCINE (2024- season) 2025 HIB VACCINES Completed 06/23/1996, 11/1994, 1995, Additional history exists MENINGOCOCCAL VACCINES (ACWY) Aged Out 06/08/2008 No longer eligible based on patient's age to complete this topic HEPATITIS A VACCINES Aged Out 06/16/2014 No long er eligible based on patient's age to complete this topic MENINGOCOCCAL VACCINES (B) Aged Out N o longer eligible based on patient's age to complete this topic PNEUMOCOCCAL VACCINES (0-49 years) Aged Out No longer eligible based on patient's age to complete this topic Medical Devices Not on file Care Teams Concrete Rod Buster Relationship Specialty Start Date End Date Pcp, Unknown PCP - General 06/20/22 Additional Source Comments The information contained in this document represents components of the legal health record. It is not the complete legal health record.[facility]
--- OUTSIDE RECORDS SUMMARY | 2025-11-08 13:10 | XMS_ITS | Patient Health Record ---
Author Organization [facility] Address [address] [place] [address] Care Team Providers Care Lute Packer Or Applier Name Role Phone HAYLEY CHANG Unavailable [phone] MAHIN GABRIELA Unavailable [phone] Tammi Tai Unavailable [phone] Allergies No Known Allergies Results Component Value Reference Range Flag Notes Ct/GC FRANCOISE, Pharyngeal-[id number] Reviewed date:02/02/2025 01:26:56 PM Interpretation:Negative Performing Lab:[facility], [address], [address], [place], Phone - [phone], Director - [facility] Notes/Report: Clinical Information:SRC: ORAL C. trachomatis, FRANCOISE, Pharyn Negative Negative N. gonorrhoeae, FRANCOISE, Pharyn Negative Negative Genital Mycoplasmas FRANCOISE, [facility] b-[id number] Reviewed date:02/05/2025 09:46:37 AM Interpretation:Abnormal Performing Lab:Stephanie Chaney, [address] [facility], [place], Phone - [phone], Director - Bettye Notes/Report: and Drug Administration. by [employer]. It has not been cleared or approved by the Food was developed and its performance characteristics determined 281475-Kvfgkfo krusei, FRANCOISE 222074-O parapsilosis/tropicalis; 986887-Brzhian lusitaniae, FRANCOISE; Test(s) 086354-Xkbwpkx albicans, FRANCOISE; 493471-Xltjgfe glabrata, FRANCOISE; and Drug Administration. by [employer]. It has not been cleared or approved by the Food was developed and its performance characteristics determined Ureaplasma spp FRANCOISE Megasphaera 1; 961288-Uohfkzumlk hominis FRANCOISE; 703405- Clinical Information:SRC: ORAL Mycoplasma genitalium FRANCOISE Negative Negative Mycoplasma hominis FRANCOISE Positive Negative A Ureaplasma spp FRANCOISE Positive Negative A NuSwab VG+, Karey 6sp-1800 68 Reviewed date:02/03/2025 10:39:40 AM Interpretation:Negative Performing Lab:[facility], [address], [place], Phone - [phone], Director - Bettye Notes/Report: Clinical Information:SRC: ORAL Megasphaera 1; 685931-Htxnsqatjy hominis FRANCOISE; 270359- Ureaplasma spp FRANCOISE was developed and its performance characteristics determined by [facility]. It has not been cleared or approved by the Food and Drug Administration. Test(s) 813911-Yuwvluy albicans, FRANCOISE; 796325-Dwrxobm glabrata, FRANCOISE; 868677-I parapsilosis/tropicalis; 111047-Qlvnnxw lusitaniae, FRANCOISE; 656162-Nrrausu krusei, FRANCOISE was developed and its performance characteristics determined by [facility]. It has not been cleared or approved by the Food and Drug Administration. Atopobium vaginae Low - 0 BVAB 2 Low - 0 Megasphaera 1 Low - 0 Calculate total score by adding the 3 individual bacterial vaginosis (BV) marker scores together. Total score is interpreted as follows: Total score 0-1: Indicates the absence of BV. Total score 2: Indeterminate for BV. Additional clinical data should be evaluated to establish a diagnosis. Total score 3-6: Indicates the presence of BV. Karey albicans, FRANCOISE Negative Negative Karey glabrata, FRANCOISE Negative Negative C parapsilosis/tropicalis Negative Negative This assay does not differentiate C. tropicalis and C. parapsilosis. Karey lusitaniae, FRANCOISE Negative Negative Karey krusei, FRANCOISE Negative Negative Trich vag by FRANCOISE Negative Negative Chlamydia trachomatis, FRANCOISE Negative Negative Neisseria gonorrhoeae, FRANCOISE Negative Negative HIV Ab/p24 Ag with Reflex-08 3935 Reviewed date:02/01/2025 12:08:46 PM Interpretation:Negative Performing Lab:[facility] [address], [address], [place], Phone - [phone], Director - [facility] Notes/Report: Clinical Information:SRC: ORAL HIV Ab/p24 Ag Screen Non Reactive Non Reactive HIV-1/HIV-2 antibodies and HIV-1 p24 antigen were NOT detected. There is no laboratory evidence of HIV infection. HIV Negative T pallidum Screening [place] -[id number] Reviewed date:02/01/2025 12:29:31 PM Interpretation:Negative Performing Lab:Stephanie Bautista, [address], [address], [place], Phone - [phone], Director - [facility] Notes/Report: Clinical Information:SRC: ORAL T pallidum Antibodies Non Reactive Non Reactive Test, Urine Reviewed date:01/31/2025 05:13:06 PM Interpretation:Negative Performing Lab: Notes/Report: Negative Test, Urine Negative Lot # [id number] Exp. Date 02/06/26 PDF Report Reviewed date:05/30/2025 03:27:08 PM Interpretation: Performing Lab:Stephanie Bautista, [address], [address], [place], Phone - [phone], Director - [facility] Notes/Report: No. of containers..01 ThinPrep Vial LMP / Prev Treat...LMF=[id number] Clinical Information:[id number] IGP, Apt HPV,rfx 16/18,45-19 9344 Reviewed date:05/30/2025 03:26:52 PM Interpretation:Normal, HPV neg Performing Lab:Stephanie Bautista, [address], [address], [place], Phone - [phone], Director - [facility] Notes/Report: Clinical Information:[id number] LMP / Prev Treat...DPI=[id number] No. of containers..01 ThinPrep Vial DIAGNOSIS: NEGATIVE FOR INTRAEPITHELIAL LESION OR MALIGNANCY. Specimen adequacy: Satisf actory for evaluation. No endocervical component is identified. Clinician provided ICD10: Z01.419 Z11.51 Performed by: Isaiah marlow, Director [employer] ([employer]) . . Note: The Pap smear is a screening test designed to aid in the detection of premalignant and malignant conditions of the uterine cervix. It is not a diagnostic procedure and should not be used as the sole means of detecting cervical cancer. Both false-positive and false-negative reports do occur. . Test Methodology: [facility] [employer] was unable to read this specimen. Therefore a manual review was performed. HPV Aptima Negative Negative This nucleic acid amplification test detects fourteen high-risk HPV types (16,18,31,33,35,39,45,51 ,52,56,58,59,66,68) without differentiation. Ct/GC FRANCOISE, Pharyngeal-[id number] Reviewed date:05/23/2025 12:53:21 PM Interpretation:Negative Performing Lab:[facility] [place], [facility] [address], [address], [place], Phone - [phone], Director - [facility] Notes/Report: C. trachomatis, FRANCOISE, Pharyn Negative Negative N. gonorrhoeae, FRANCOISE, Pharyn Negative Negative Genital Mycoplasmas FRANCOISE, [facility] b-[id number] Reviewed date:05/22/2025 03:58:07 PM Interpretation:Positive Performing Lab:[facility], [address] [facility], [place], Phone - [phone], Director - [facility] Notes/Report: and Drug Administration. by [employer]. It has not been cleared or approved by the Food was developed and its performance characteristics determined 794617-Rrrjrgk krusei, FRANCOISE 188469-T parapsilosis/tropicalis; 381238-Xnsusvi lusitaniae, FRANCOISE; Test(s) 824044-Hzipwbj albicans, FRANCOISE; 824447-Kmgejgb glabrata, FRANCOISE; and Drug Administration. by [employer]. It has not been cleared or approved by the Food was developed and its performance characteristics determined Ureaplasma spp FRANCOISE Megasphaera 1; 125704-Rxyezminql hominis FRANCOISE; 536452- Test(s) 478792- Atopobium vaginae; 008791- BVAB 2; 780400- Mycoplasma genitalium FRANCOISE Negative Negative Mycoplasma hominis FRANCOISE Positive Negative A Ureaplasma spp FRANCOISE Negative Negative NuSwab VG+, Karey 6sp-1800 68 Reviewed date:05/22/2025 03:58:34 PM Interpretation:Positive Performing Lab:[facility] [place], [address], [place], Phone - [phone], Director - [facility] Notes/Report: Test(s) 099885- Atopobium vaginae; 863114- BVAB 2; 834692- Megasphaera 1; 616707-Cnkcsjpcsl hominis FRANCOISE; 099272- Ureaplasma spp FRANCOISE was developed and its performance characteristics determined by [employer]. It has not been cleared or approved by the Food and Drug Administration. Test(s) 324836-Nylcnpq albicans, FRANCOISE; 835737-Kycedor glabrata, FRANCOISE; 399350-H parapsilosis/tropicalis; 680546-Ydpoqco lusitaniae, FRANCOISE; 923878-Bcflmpp krusei, FRANCOISE was developed and its performance characteristics determined by [employer]. It has not been cleared or approved by the Food and Drug Administration. Atopobium vaginae Moderate - 1 BVAB 2 High - 2 A Megasphaera 1 High - 2 A Calculate total score by adding the 3 individual bacterial vaginosis (BV) marker scores together. Total score is interpreted as follows: Total score 0-1: Indicates the absence of BV. Total score 2: Indeterminate for BV. Additional clinical data should be evaluated to establish a diagnosis. Total score 3-6: Indicates the presence of BV. Karey albicans, FRANCOISE Negative Negative Karey glabrata, FRANCOISE Negative Negative C parapsilosis/tropicalis Negative Negative This assay does not differentiate C. tropicalis and C. parapsilosis. Karey lusitaniae, FRANCOISE Negative Negative Karey krusei, FRANCOISE Negative Negative Trich vag by FRANCOISE Negative Negative Chlamydia trachomatis, FRANCOISE Negative Negative Neisseria gonorrhoeae, FRANCOISE Negative Negative HCV Antibody RFX to Quant PC [id number] Reviewed date:05/22/2025 03:57:38 PM Interpretation:Non-reactive Performing Lab:[facility], [address], [address], [place], Phone - [phone], Director - [facility] Notes/Report: HCV Ab Non Reactive Non Reactive Interpretation: Not infected with HCV unless early or acute infection is suspected (which may be delayed in an immunocompromised individual), or other evidence exists to indicate HCV infection. HIV Ab/p24 Ag with Reflex-08 3935 Reviewed date:05/22/2025 03:58:41 PM Interpretation:Non-reactive Performing Lab:[facility] [place], [address], [address], [place], Phone - [phone], Director - [facility] Notes/Report: HIV Ab/p24 Ag Screen Non Reactive Non Reactive HIV-1/HIV-2 antibodies and HIV-1 p24 antigen were NOT detected. There is no laboratory evidence of HIV infection. HIV Negative T pallidum Screening [place] -100504 Reviewed date:05/22/2025 03:58:48 PM Interpretation:Non-reactive Performing Lab:[facility] [place], [address], [address], [place], Phone - [phone], Director - [facility] Notes/Report: T pallidum Antibodies Non Reactive Non Reactive Interpretation: Syphilis: Treponemal Antibodies with Reflex to RPR and RPR Titer, Reverse Screening and Diagnosis Algorithm Treponemal Treponemal Ab RPR, Qn Ab, TPPA Final Interpretation -------- Non N/A N/A No laboratory evidence Reactive of syphilis. Retest in 2-4 weeks if recent exposure is suspected. -------- Reactive Non Non Treponemal antibodies Reactive Reactive not confirmed. Inconclusive for syphilis; potential early syphilis, possible false positive. Retest in 2-4 weeks if recent exposure is suspected. -------- Reactive Non Reactive Treponemal antibodies Reactive detected. Consistent with past or current (potential early) syphilis. -------- Reactive >/=1:1 N/A Treponemal and nontreponemal antibodies detected. Consistent with current or past syphilis. Test, Urine Reviewed date:02/14/2025 12:37:31 PM Interpretation:Positive Performing Lab: Notes/Report: Positive Test, Urine POSITIVE Lot # [id number] Exp. Date [id number] HCV Antibody-[id number] Reviewed date:12/05/2024 12:47:00 PM Interpretation:Negative Performing Lab:[facility] [address], [address], [place], Phone - [phone], Director - [facility] Notes/Report: Hep C Virus Ab Non Reactive Non Reactive HCV antibody alone does not differentiate between previously resolved infection and active infection. Equivocal and Reactive HCV antibody results should be followed up with an HCV RNA test to support the diagnosis of active HCV infection. Genital Mycoplasmas FRANCOISE, a b-[id number] Reviewed date:12/05/2024 11:18:04 AM Interpretation:M. Hominis and Ureaplasma Positive [facility], [address] [facility], Phone - [phone], Director - [facility] Notes/Report: Test(s) 089343- Atopobium vaginae; 201142- BVAB 2; 001384- Megasphaera 1; 592769-Odckcdhpbw hominis FRANCOISE; 566979- Ureaplasma spp FRANCOISE was developed and its performance characteristics determined by [facility]. It has not been cleared or approved by the Food and Drug Administration. Test(s) 302461-Veqzgoz albicans, FRANCOISE; 356796-Iqwdygj glabrata, FRANCOISE; 674543-C parapsilosis/tropicalis; 065964-Vfszzky lusitaniae, FRANCOISE; 065234-Zgcszvo krusei, FRANCOISE was developed and its performance characteristics determined by [facility]. It has not been cleared or approved by the Food and Drug Administration. Mycoplasma genitalium FRANCOISE Negative Negative Mycoplasma hominis FRANCOISE Positive Negative A Ureaplasma spp FRANCOISE Positive Negative A NuSwab VG+, Karey 6sp-1800 68 Reviewed date:12/05/2024 11:15:51 AM Interpretation:BV positive [facility]forming [facility], [address], [place], Phone - [phone], Director - [facility] Notes/Report: Test(s) 962896- Atopobium vaginae; 455455- BVAB 2; 946687- Megasphaera 1; 724411-Ycpbcixzau hominis FRANCOISE; 013010- Ureaplasma spp FRANCOISE was developed and its performance characteristics determined by [employer]. It has not been cleared or approved by the Food and Drug Administration. Test(s) 109066-Vjqsjdv albicans, FRANCOISE; 386695-Lmpnxlt glabrata, FRANCOISE; 726819-D parapsilosis/tropicalis; 408185-Ktuvhht lusitaniae, FRANCOISE; 891947-Amrcavc krusei, FRANCOISE was developed and its performance characteristics determined by [employer]. It has not been cleared or approved by the Food and Drug Administration. Atopobium vaginae High - 2 A BVAB 2 High - 2 A Megasphaera 1 High - 2 A Calculate total score by adding the 3 individual bacterial vaginosis (BV) marker scores together. Total score is interpreted as follows: Total score 0-1: Indicates the absence of BV. Total score 2: Indeterminate for BV. Additional clinical data should be evaluated to establish a diagnosis. Total score 3-6: Indicates the presence of BV. Karey albicans, FRANCOISE Negative Negative Karey glabrata, FRANCOISE Negative Negative C parapsilosis/tropicalis Negative Negative This assay does not differentiate C. tropicalis and C. parapsilosis. Karey lusitaniae, FRANCOISE Negative Negative Karey krusei, FRANCOISE Negative Negative Trich vag by FRANCOISE Negative Negative Chlamydia trachomatis, FRANCOISE Negative Negative Neisseria gonorrhoeae, FRANCOISE Negative Negative HIV Ab/p24 Ag with Reflex-08 3935 Reviewed date:12/05/2024 12:52:56 PM Interpretation:Negative Performing Lab:[facility] [place], [address], [address], [place], Phone - [phone], Director - [facility] Notes/Report: HIV Ab/p24 Ag Screen Non Reactive Non Reactive HIV-1/HIV-2 antibodies and HIV-1 p24 antigen were NOT detected. There is no laboratory evidence of HIV infection. HIV Negative T pallidum Screening [place] -934666 Reviewed date:12/05/2024 12:52:46 PM Interpretation:Negative Performing Lab:[facility] [place], [address], [address], [place], Phone - [phone], Director - [facility] Notes/Report: T pallidum Antibodies Non Reactive Non Reactive Hepatitis B Surf Ab Quant-00 6530 Reviewed date:12/05/2024 11:27:11 AM Interpretation:Not Immune Performing Lab:[facility] [place], [address], [address], [place], Phone - [phone], Director - [facility] Notes/Report: Hepatitis B Surf Ab Quant <3.5 Immunity>10 mIU/mL L Status of Immunity Anti-HBs Level Inconsistent with Immunity 0.0 - 10.0 Consistent with Immunity >10.0 HBsAg Screen-600313 Reviewed date:12/05/2024 12:52:35 PM Interpretation:Negative Performing Lab:[facility] [place], [facility] [address], [address], [place], Phone - [phone], Director - [facility] Notes/Report: HBsAg Screen Negative Negative [place] Reviewed date:12/02/2024 10:43:40 AM Interpretation:BV positive Performing Lab: Notes/Report: BV positive Clue Cells pos WBC neg Hyphae neg Trichomonas neg pH 6 DMITRI Prep pos whiff Urinalysis Reviewed date:12/09/2024 09:22:27 AM Interpretation:Negative Performing Lab: Notes/Report: Negative Leukocytes - Nitrates - Uro 0.2 Protein - pH 6.0 Blood - Spec [place] 1.025 Ketones - Bilirubin - Glucose - Test, Urine Reviewed date:12/02/2024 10:41:46 AM Interpretation:Negative Performing Lab: Notes/Report: Negative Test, Urine Negative Lot # [id number] Exp. Date 08/15/25 Genital Mycoplasmas FRANCOISE, [facility] b-[id number] Reviewed date:03/27/2025 12:01:10 PM Interpretation:Ureaplasma Positive Performing Lab:[facility], [address] [facility], [place], Phone - [phone], Director - Bettye Notes/Report: and Drug Administration. by [facility]. It has not been cleared or approved by the Food was developed and its performance characteristics determined Clinical Information:SRC:Vaginal Mycoplasma genitalium FRANCOISE Negative Negative Mycoplasma hominis FRANCOISE Negative Negative Ureaplasma spp FRANCOISE Positive Negative A Urinalysis Reviewed date:01/31/2025 07:28:04 PM Interpretation:Normal Performing Lab: Notes/Report: Normal Leukocytes - Nitrates - Uro 0.2 Protein - pH 6.0 Blood - Spec [place] 1.025 Ketones - Bilirubin - Glucose - Mammogram (Bilateral), Diagn ostic computer aided Reviewed date:07/05/2025 09:21:16 AM Interpretation:BIRADS 1 NEGATIVE Performing Lab: Notes/Report: BIRADS 1 NEGATIVE HBsAg Screen-[id number] Reviewed date:10/16/2025 11:45:22 AM Interpretation: Negative Performing Lab:[facility], [address], [address], [place], Phone - [phone], [facility] Notes/Report: HBsAg Screen Negative Negative Hepatitis B Surf Ab Quant-00 6530 Reviewed date:10/11/2025 01:21:32 PM Interpretation:Not Immune Performing Lab:[facility], [address], [address], [place], Phone - [phone], Director - [facility] Notes/Report: Hepatitis B Surf Ab Quant <3.5 Immunity>10 mIU/mL L Status of Immunity Anti-HBs Level Inconsistent with Immunity 0.0 - 10.0 Consistent with Immunity >10.0 Hep B Core Ab, Tot-[id number] Reviewed date:10/16/2025 11:45:22 AM Interpretation: Negative Performing Lab:[facility], [address], [address], [place], Phone - [phone], Director - [facility] Notes/Report: Hep B Core Ab, Tot Negative Negative T pallidum Screening [place] -786581 Reviewed date:10/09/2025 01:43:29 PM Interpretation:Negative Performing Lab:Stephanie Bautista, [address], [address], [place], Phone - [phone], Director - [facility] Notes/Report: T pallidum Antibodies Non Reactive Non Reactive HIV Ab/p24 Ag with Reflex-08 3935 Reviewed date:10/16/2025 11:45:22 AM Interpretation: Negative Performing Lab:[facility], [address], [address], [place], Phone - [phone], Director - [facility] Notes/Report: HIV Ab/p24 Ag Screen Non Reactive Non Reactive HIV-1/HIV-2 antibodies and HIV-1 p24 antigen were NOT detected. There is no laboratory evidence of HIV infection. HIV Negative HCV Antibody RFX to Quant PC [id number] Reviewed date:10/16/2025 11:45:22 AM Interpretation: Negative Performing Lab:Stephanie Bautista, [address], [address], [place], Phone - [phone], Director - [facility] Notes/Report: HCV Ab Non Reactive Non Reactive Interpretation: Not infected with HCV unless early or acute infection is suspected (which may be delayed in an immunocompromised individual), or other evidence exists to indicate HCV infection. NuSwab VG+, Karey 6sp-1800 68 Reviewed date:10/11/2025 01:21:06 PM Interpretation:BV Positive Performing Lab:[facility] [place], [address], [place], Phone - [phone], Director - Bettye Notes/Report: and Drug Administration. by [employer]. It has not been cleared or approved by the Food was developed and its performance characteristics determined 874765-Sssgqyf krusei, FRANCOISE 122733-J parapsilosis/tropicalis; 615107-Bgednhr lusitaniae, FRANCOISE; Test(s) 310895-Ndfxdwl albicans, FRANCOISE; 728998-Eblrpgp glabrata, FRANCOISE; and Drug Administration. by [employer]. It has not been cleared or approved by the Food was [employer] and its performance characteristics determined Megasphaera 1 Test(s) 361028- Atopobium vaginae; 031014- BVAB 2; 289702- Atopobium vaginae High - 2 A BVAB 2 High - 2 A Megasphaera 1 High - 2 A Calculate total score by adding the 3 individual bacterial vaginosis (BV) marker scores together. Total score is interpreted as follows: Total score 0-1: Indicates the absence of BV. Total score 2: Indeterminate for BV. Additional clinical data should be evaluated to establish a diagnosis. Total score 3-6: Indicates the presence of BV. Karey albicans, FRANCOISE Negative Negative Karey glabrata, FRANCOISE Negative Negative C parapsilosis/tropicalis Negative Negative This assay does not differentiate C. tropicalis and C. parapsilosis. Karey lusitaniae, FRANCOISE Negative Negative Karey krusei, FRANCOISE Negative Negative Trich vag by FRANCOISE Negative Negative Chlamydia trachomatis, FRANCOISE Negative Negative Neisseria gonorrhoeae, FRANCOISE Negative Negative Reason For Referral No Information Medications Medication SIG (Take, Route, Frequency, Duration) Notes Start Date End Date Status MetroGel-Vaginal 0.75 % Gel 1 application at bedtime Vaginal Once a day; Duration: 5 day(s) 10/07/2025 Active metroNIDAZOLE 500 MG Tablet 1 tablet Orally Twice a day, every 12 hours; Duration: 7 days 10/27/2025 Active L-Glutamine Not-Taki ng/PRN Vitamin D-3 Not-Taki ng/PRN Zinc Not-Taking /PRN Fem-Dophilus Womens Not-Taking/PRN Social History Sex Assigned At : Social History Observation Description Sex Assigned At Female Social History HIV Risk Assessment Social Info Question Answer Notes Additional Questions Is an HIV Risk Assessment being c onducted? Yes Have you been tested for HIV before? Yes If yes, when and where? Did you have a blood transfusion prior to 1985? No Do you have an unlicensed body piercing or tattoo? No Reproductive Life Plan: Social Info Question Answer Notes Reproductive Life Plan: Do you want to h ave children? No, I don't want to have children How sure are you that you will be able to use your control method without any problems? Sure People's plans change. Is it possible you or your partner could ever decide to become ? No Human Trafficking: Social Info Question Answer Notes Human Trafficking Experienced: No PrEP for HIV: Social Info Question Answer Notes PrEP for HIV Is the client intere sted in beginning/continuing PrEP for HIV? No Sexual History: Social Info Question Answer Notes Sexual History: Sexual History Reviewed: Partner s, Practices, Protection/Past STIs Currently sexually active? Yes Sexually active with: Men Number of male partners 1 Client alternates between her two partners Your sexual activities include: oral intercourse, vaginal intercourse Do you use condoms? No Date of last unprotected intercourse: 10/05/2025 Number of partners in past 3 months: 1 Number of partners in past year: 6 Does your partner(s) currently have any STIs? No Counseling Provided: Social Info Question Answer Notes Counseling Provided Please indicate the length of time, in minutes, that counseling was provided. 7 Counseling Was Provided By: lon Drugs/Alcohol: Social Info Question Answer Notes Drug/Alcohol Use Do you or have you used drugs? Yes, c urrently By what route are you taking drugs? Please check all that apply: Smoking Which drug(s) do you smoke? Marijuana When did you last use? Do you want to quit drugs? No Do you or have you used alcohol? Yes, currently Socially Food Access: Social Info Question Answer Notes Food Access The Client's current access to food is Secure Food Access Relationships: Social Info Question Answer Notes Relationships Has the client experienced any of the following: Client has never experienced harmful relationships Housing Social Info Question Answer Notes Housing The client's current living situation is: stable housing Tobacco Use: Social Info Question Answer Notes Tobacco Use: Do you/have you used tobacco? Yes, currently tobacco with marijuana Tobacco Smoking Status Current some day smoker Section Notes: k k Aptima/ bw Aptima through pap/ bw Pt/ aptima Aptima/ bw Vital Signs Blood pressure diastolic 86 mm Hg 03/24/2025 Height 55 in 03/24/2025 Blood pressure systolic 110 mm Hg 03/24/2025 Weight 157 lbs 03/24/2025 BMI 36.49 kg/m2 03/24/2025 Encounters Encounter Location Date Provider Diagnosis [address] [id number] 12/02/2024 GABRIELA STOCKTON Encounter for screen ing for infections with a predominantly sexual mode of transmission Z11.3 ; Acute vaginitis N76.0 ; Urinary frequency R35.0 ; Encounter for test, result negative Z32.02 ; Encounter for screening for human immunodeficiency virus [HIV] Z11.4 ; Screening for other viral diseases Z11.59 ; Encounter for screening for other infectious and parasitic diseases Z11.8 and Vaginal discharge N89.[address] [id number] 12/09/2024 GABRIELA STOCKTON Screening Breast Exa m Z12.[address] [facility] [id number] 01/31/2025 HAYLEY GABAI Encounter for screen ing for infections with a predominantly sexual mode of transmission Z11.3 ; Encounter for other general counseling and advice on contraception Z30.09 ; HIV Screening Z11.4 ; Encounter for screening for other infectious and parasitic diseases Z11.8 and test, result negative Z32.02 [facility] [address] [place] [id number] 02/14/2025 HAYLEY GABAI Encounter for pregna ncy test, result positive Z32.01 ; Counseling, unspecified Z71.9 and Mycoplasma infection, unspecified site A49.[address] [id number] 03/24/2025 GABRIELA STOCKTON Encounter for screen ing for infections with a predominantly sexual mode of transmission Z11.3 ; Counseling, unspecified Z71.9 ; Other problems related to lifestyle Z72.89 and Encounter for screening for other infectious and parasitic diseases Z11.8 [facility] [address] [place], [place] [id number] 05/19/2025 Tammi Zaire Encounter for screening for infections with a predominantly sexual mode of transmission Z11.3 ; Counseling, unspecified Z71.9 ; Other problems related to lifestyle Z72.89 ; Encounter for screening for human immunodeficiency virus [HIV] Z11.4 ; Encounter for screening for other viral diseases Z11.59 ; Encounter for screening for other infectious and parasitic diseases Z11.8 and Encounter for screening for other infectious and parasitic diseases Z11.[address] [id number] 05/24/2025 GABRIELA STOCKTON Encounter for gynecological examination (general) (routine) without abnormal findings Z01.419 ; Encounter for screening for human papillomavirus (HPV) Z11.51 and Unspecified lump in unspecified breast N63.0 [facility] [address] [place], [place] [id number] 10/07/2025 GABRIELA STOCKTON Encounter for screen ing for infections with a predominantly sexual mode of transmission Z11.3 ; Acute vaginitis N76.0 ; HIV Screening Z11.4 ; Vaginal discharge N89.8 and Screening for other viral diseases Z11.59 [facility] [address] [id number] 12/02/2024 GABRIELA STOCKTON Acute vaginitis N76. 0 [facility] [address] [id number] 12/05/2024 GABRIELA STOCKTON [facility] [address] [id number] 12/07/2024 GABRIELA STOCKTON [facility] [address] [place], [place] [id number] 02/03/2025 HAYLEY PATELI [facility] [address] [id number] 02/06/2025 GABRIELA STOCKTON [facility] [address] [id number] 02/08/2025 GABRIELA STOCKTON [facility] [address] [id number] 03/27/2025 GABRIELA STOCKTON [facility] [address] [place], [place] [id number] 05/22/2025 [facility] [address] [id number] 05/23/2025 [facility] [address] [id number] 05/24/2025 [facility] [address] [place] [id number] 07/05/2025 GABRIELA STOCKTON [facility] [address] [place], [place] [id number] 10/27/2025 GABRIELA STOCKTON Assessments Encounter Date Diagnosis (ICD Code) Assessment Notes Treatment Notes Treatment Clinical Notes Section Notes 12/02/2024 Acute vaginitis (ICD-10 - N76.0) Reviewed BV findings and treatment options. No sexual activity during treatment and condom/barrier use encouraged following for at least a month for prevention. Genital hygiene practices reviewed. Reviewed boric acid use for BV prevention and self treatment. Suggested trying to use twice weekly after treatment. To be used vaginally only as can be toxic if ingested. Will do STI screening and mycoplasma panel as well yeast tx to be used if yeast like symptoms develop CancelRx Response got Denied on 2024-12-02 13:49:08 for 'Fluconazole 150 MG Tablet'Pharmacy Notes: Unable to Cancel Rx. Please contact Pharmacy Need 2 out of 3 Sections from A-C Section A) Problems (only need one from below) Section B) Data (need at least one of the following categories in this section) Category 1: (Choose three of the following): Order Unique tests Section C) Risk (any one of the following) Prescription drug management (this counts for the whole section) 12/02/2024 Encounter for screening for infections with a predominantly sexual mode of transmission (ICD-10 - Z11.3) Discussed STI risks, screenings that are available through [facility] and safe sex. Clt aware of lab processing times and how to view results on portal and how positive results will be communicated Need 2 out of 3 Sections from A-C Section A) Problems (only need one from below) Section B) Data (need at least one of the following categories in this section) Category 1: (Choose three of the following): Order Unique tests Section C) Risk (any one of the following) Prescription drug management (this counts for the whole section) 12/02/2024 Acute vaginitis (ICD-10 - N76.0) 12/09/2024 Screening Breast Exam (ICD-10 - Z12.39) Clt with bilateral fibroglandular BR tissue. No masses noted. Clt was feeling a rib bone under BR tissue. Reviewed self breast awareness and what to report. If clt with continued concerns regarding current findings can RTC for another exam and consider BR ultrasound to further evaluation but normal exam today. Clt in agreement with plan Spent 15 minutes doing the following: Chart Prep Obtaining/revie wing history Performing medically necessary exam Counseling/Coor dination of Care Documenting the visit Educating the patient Established Patient: [id number] 10 Minutes 01/31/2025 Encounter for screening for infections with a predominantly sexual mode of transmission (ICD-10 - Z11.3) Reviewed routine screening, safe sex and consistent barrier protection. Aware of window period for testing and testing options. Discussed symptoms that would warrant further evaluation and follow-up care Need 2 out of 3 Sections from A-C Section A) Problems (only need one from below) Two or more self-limited or minor programs Section B) Data (at least one of the following categories in this section) Category 1: (Choose 2 of the following): Order unique tests Review test results (each unique test counts as one) Category 2: Assessment requiring an independent historian Section C) Risk Document low risk of morbidity/morta lity 01/31/2025 Encounter for other general counseling and advice on contraception (ICD-10 - Z30.09) Reviewed control options available. Reviewed risk, benefits and side effects of each method. Answered questions and concerns, and used shared decision-making to choose method. Agreeable EC rx for future use Need 2 out of 3 Sections from A-C Section A) Problems (only need one from below) Two or more self-limited or minor programs Section B) Data (at least one of the following categories in this section) Category 1: (Choose 2 of the following): Order unique tests Review test results (each unique test counts as one) Category 2: Assessment requiring an independent historian Section C) Risk Document low risk of morbidity/morta lity 02/14/2025 Encounter for test, result positive (ICD-10 - Z32.01) Encouraged clt to start vitamins. Schedule with OBGYN for initial visit, referral list given. Avoid ETOH and smoking Spent ___ minutes doing the following: Chart Prep Obtaining/revie wing history Performing medically necessary exam Counseling/Coor dination of Care Documenting the visit Educating the patient Ordering medication/test /procedures Communication with other providers Communication of test results Established Patient: [id number] 20 Minutes 02/14/2025 Counseling, unspecified (ICD-10 - Z71.9) Spent ___ minutes doing the following: Chart Prep Obtaining/revie wing history Performing medically necessary exam Counseling/Coor dination of Care Documenting the visit Educating the patient Ordering medication/test /procedures Communication with other providers Communication of test results Established Patient: [id number] 20 Minutes 03/24/2025 Encounter for screening for infections with a predominantly sexual mode of transmission (ICD-10 - Z11.3) Reviewed clt completed tx for mycoplasma hominis and Ureaplasma. Doxy tx is preferred but azithromycin recommended for - unsure in clearance difference between regimens. Reviewed typically don't rescreen unless concerns for re-exposure or lingering symptoms. Reviewed options at this time. Clt would like to rescreen today. If positive I advise monitor for any worrisome symptoms that would warrant retreatment. Clt in agreement with plan. Spent 20 minutes doing the following: Chart Prep Obtaining/revie wing history Performing medically necessary exam Counseling/Coor dination of Care Documenting the visit Educating the patient Ordering medication/test /procedures Established Patient: [id number] 20 Minutes 05/19/2025 Encounter for screening for infections with a predominantly sexual mode of transmission (ICD-10 - Z11.3) Discuss optimal vaginal health hygiene for avoiding common vaginitis triggers: avoid semen, prolonged contact with damp clothing on genitals, scented body products/soaps, scented laundry/period/b athroom products that come in contact with genitals, douching. Encouraged daily vitamin C of at least 250mg, vaginal probiotics. Additional options for chronic BV/Yeast infx: Boric Acid vaginal suppositories 600mg at end of period for 2-7 days at night, and/or Hydrogen Peroxide 3% shallow vaginal flush 30mL at end of period for 2-7 nights, or prn. Counseled that if tx is indicated upon lab results, to avoid SA and ETOH until finished with tx course. Reviewed new data supporting BV transmission methods, and encouraged to tell previous partners that they should get tested prior to resuming SA with them, disccussed EPT options for BV tx. Discussed STI risks, screenings that are available through [facility] and safe sex. Clt aware of lab processing times and how to view results on portal and how positive results will be communicated. HIV, RPR, HCV, Nuswab+, GC/CT/T- oral testing requested. All questions and concerns addressed. RTC for testing within the week. Spent 20 minutes doing the following: Chart Prep Obtaining/revie wing history Counseling/Coor dination of Care Documenting the visit Educating the patient Ordering medication/test /procedures Established Patient: [id number] 20 Minutes 05/24/2025 Encounter for screening for human papillomavirus (HPV) (ICD-10 - Z11.51) 05/24/2025 Encounter for gynecological examination (general) (routine) without abnormal findings (ICD-10 - Z01.419) Discussed routine screenings and self breast/chest awareness. Clt with fibrocystic BR tissue in general. Question of mass present vs just fibrocystic area. Will send for imaging to further evaluate. Pap guidelines reviewed and pap collected. Cotesting in 3 years if normal. Reassurred area on L groin crease is an ingrown hair Provided clt with partner BV treatment instructions. Partner can get tested for mycoplasma to see if they need treatment 10/07/2025 Acute vaginitis (ICD-10 - N76.0) Symptoms and history is suggestive of BV. For lab collection to confirm dx but may start on BV treatment while waiting for results. 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 Mycoplasma hominis and Ureaplasma species are frequently considered part of the normal genital tract shreyas, particularly in sexually active individuals. Up to 70-80% of sexually active people may be colonized, and in most cases, these organisms do not cause clinical symptoms. They are generally non-pathogenic in healthy, non- individuals and typically do not require treatment when asymptomatic. M. hominis and Ureaplasma species may still be detectable after treatment due to persistent colonization. Positive results alone do not indicate active infection or treatment failure and do not require further treatment unless symptoms or clinical concerns are present. I do NOT recommend we retest at this time. Clt's positive results likely due to colonization. If continued symptoms not cleared by BV treatment and nothing else positive then can consider repeat testing. Need 2 out of 3 Sections from A-C Section A) Problems (only need one from below) Section B) Data (need at least one of the following categories in this section) Category 1: (Choose three of the following): Order Unique tests Section C) Risk (any one of the following) Prescription drug management (this counts for the whole section) 10/07/2025 Encounter for screening for infections with a predominantly sexual mode of transmission (ICD-10 - Z11.3) Discussed STI risks, screenings that are available through [facility] and safe sex. Clt aware of lab processing times and how to view results on portal and how positive results will be communicated Need 2 out of 3 Sections from A-C Section A) Problems (only need one from below) Section B) Data (need at least one of the following categories in this section) Category 1: (Choose three of the following): Order Unique tests Section C) Risk (any one of the following) Prescription drug management (this counts for the whole section) 10/07/2025 HIV Screening (ICD-10 - Z11.4) Need 2 out of 3 Sections from A-C Section A) Problems (only need one from below) Section B) Data (need at least one of the following categories in this section) Category 1: (Choose three of the following): Order Unique tests Section C) Risk (any one of the following) Prescription drug management (this counts for the whole section) 05/24/2025 Unspecified lump in unspecified breast (ICD-10 - N63.0) 05/19/2025 Counseling, unspecified (ICD-10 - Z71.9) Spent 20 minutes doing the following: Chart Prep Obtaining/revie wing history Counseling/Coor dination of Care Documenting the visit Educating the patient Ordering medication/test /procedures Established Patient: [id number] 20 Minutes 12/02/2024 Urinary frequency (ICD-10 - R35.0) UA normal Need 2 out of 3 Sections from A-C Section A) Problems (only need one from below) Section B) Data (need at least one of the following categories in this section) Category 1: (Choose three of the following): Order Unique tests Section C) Risk (any one of the following) Prescription drug management (this counts for the whole section) 02/14/2025 Mycoplasma infection, unspecified site (ICD-10 - A49.3) Discussed tx regimen for mycoplasma hominis and ureaplamsa in . Discussed case with Donna Candelaria Md, rx sent. Partner also started their meds. Abstain until treatment completed. Follow up with OBGYN for follow up and repeat testing if warranted. Spent ___ minutes doing the following: Chart Prep Obtaining/revie wing history Performing medically necessary exam Counseling/Coor dination of Care Documenting the visit Educating the patient Ordering medication/test /procedures Communication with other providers Communication of test results Established Patient: [id number] 20 Minutes 03/24/2025 Counseling, unspecified (ICD-10 - Z71.9) Emotional support given today. Advised to continue to follow up with OB provider regarding following hcg quants. Will reschedule annual exam as clt is due for repeat pap Spent 20 minutes doing the following: Chart Prep Obtaining/revie wing history Performing medically necessary exam Counseling/Coor dination of Care Documenting the visit Educating the patient Ordering medication/test /procedures Established Patient: [id number] 20 Minutes 12/02/2024 Encounter for test, result negative (ICD-10 - Z32.02) Need 2 out of 3 Sections from A-C Section A) Problems (only need one from below) Section B) Data (need at least one of the following categories in this section) Category 1: (Choose three of the following): Order Unique tests Section C) Risk (any one of the following) Prescription drug management (this counts for the whole section) 01/31/2025 HIV Screening (ICD-10 - Z11.4) Need 2 out of 3 Sections from A-C Section A) Problems (only need one from below) Two or more self-limited or minor programs Section B) Data (at least one of the following categories in this section) Category 1: (Choose 2 of the following): Order unique tests Review test results (each unique test counts as one) Category 2: Assessment requiring an independent historian Section C) Risk Document low risk of morbidity/morta lity 03/24/2025 Other problems related to lifestyle (ICD-10 - Z72.89) Spent 20 minutes doing the following: Chart Prep Obtaining/revie wing history Performing medically necessary exam Counseling/Coor dination of Care Documenting the visit Educating the patient Ordering medication/test /procedures Established Patient: [id number] 20 Minutes 05/19/2025 Other problems related to lifestyle (ICD-10 - Z72.89) Spent 20 minutes doing the following: Chart Prep Obtaining/revie wing history Counseling/Coor dination of Care Documenting the visit Educating the patient Ordering medication/test /procedures Established Patient: [id number] 20 Minutes 10/07/2025 Vaginal discharge (ICD-10 - N89.8) Need 2 out of 3 Sections from A-C Section A) Problems (only need one from below) Section B) Data (need at least one of the following categories in this section) Category 1: (Choose three of the following): Order Unique tests Section C) Risk (any one of the following) Prescription drug management (this counts for the whole section) 10/07/2025 Screening for other viral diseases (ICD-10 - Z11.59) Need 2 out of 3 Sections from A-C Section A) Problems (only need one from below) Section B) Data (need at least one of the following categories in this section) Category 1: (Choose three of the following): Order Unique tests Section C) Risk (any one of the following) Prescription drug management (this counts for the whole section) 05/19/2025 Encounter for screening for human immunodeficiency virus [HIV] (ICD-10 - Z11.4) Spent 20 minutes doing the following: Chart Prep Obtaining/revie wing history Counseling/Coor dination of Care Documenting the visit Educating the patient Ordering medication/test /procedures Established Patient: [id number] 20 Minutes 03/24/2025 Encounter for screening for other infectious and parasitic diseases (ICD-10 - Z11.8) Spent 20 minutes doing the following: Chart Prep Obtaining/revie wing history Performing medically necessary exam Counseling/Coor dination of Care Documenting the visit Educating the patient Ordering medication/test /procedures Established Patient: [id number] 20 Minutes 12/02/2024 Encounter for screening for human immunodeficiency virus [HIV] (ICD-10 - Z11.4) Need 2 out of 3 Sections from A-C Section A) Problems (only need one from below) Section B) Data (need at least one of the following categories in this section) Category 1: (Choose three of the following): Order Unique tests Section C) Risk (any one of the following) Prescription drug management (this counts for the whole section) 01/31/2025 Encounter for screening for other infectious and parasitic diseases (ICD-10 - Z11.8) Discussed when retesting for ureaplasma/mycop lasma warranted. Can repeat labs since there is concern of possible re exposure and is now symptomatic. Will call with results if tx required. Encouraged partner testing and tx as needed Need 2 out of 3 Sections from A-C Section A) Problems (only need one from below) Two or more self-limited or minor programs Section B) Data (at least one of the following categories in this section) Category 1: (Choose 2 of the following): Order unique tests Review test results (each unique test counts as one) Category 2: Assessment requiring an independent historian Section C) Risk Document low risk of morbidity/morta lity 01/31/2025 test, result negative (ICD-10 - Z32.02) Need 2 out of 3 Sections from A-C Section A) Problems (only need one from below) Two or more self-limited or minor programs Section B) Data (at least one of the following categories in this section) Category 1: (Choose 2 of the following): Order unique tests Review test results (each unique test counts as one) Category 2: Assessment requiring an independent historian Section C) Risk Document low risk of morbidity/morta lity 12/02/2024 Screening for other viral diseases (ICD-10 - Z11.59) Need 2 out of 3 Sections from A-C Section A) Problems (only need one from below) Section B) Data (need at least one of the following categories in this section) Category 1: (Choose three of the following): Order Unique tests Section C) Risk (any one of the following) Prescription drug management (this counts for the whole section) 05/19/2025 Encounter for screening for other viral diseases (ICD-10 - Z11.59) Spent 20 minutes doing the following: Chart Prep Obtaining/revie wing history Counseling/Coor dination of Care Documenting the visit Educating the patient Ordering medication/test /procedures Established Patient: [id number] 20 Minutes 05/19/2025 Encounter for screening for other infectious and parasitic diseases (ICD-10 - Z11.8) Spent 20 minutes doing the following: Chart Prep Obtaining/revie wing history Counseling/Coor dination of Care Documenting the visit Educating the patient Ordering medication/test /procedures Established Patient: [id number] 20 Minutes 12/02/2024 Encounter for screening for other infectious and parasitic diseases (ICD-10 - Z11.8) Need 2 out of 3 Sections from A-C Section A) Problems (only need one from below) Section B) Data (need at least one of the following categories in this section) Category 1: (Choose three of the following): Order Unique tests Section C) Risk (any one of the following) Prescription drug management (this counts for the whole section) 12/02/2024 Vaginal discharge (ICD-10 - N89.8) Need 2 out of 3 Sections from A-C Section A) Problems (only need one from below) Section B) Data (need at least one of the following categories in this section) Category 1: (Choose three of the following): Order Unique tests Section C) Risk (any one of the following) Prescription drug management (this counts for the whole section) 05/19/2025 Encounter for screening for other infectious and parasitic diseases (ICD-10 - Z11.8) Spent 20 minutes doing the following: Chart Prep Obtaining/revie wing history Counseling/Coor dination of Care Documenting the visit Educating the patient Ordering medication/test /procedures Established Patient: [id number] 20 Minutes Plan Of Treatment No Information Insurance Providers Payer Name Payer Address Payer Phone Subscriber Number Group Number Insured Name Patient Relationship to Insured Coverage Start Date Coverage End Date [place]S [address] [place] [address] [id number] [facility] Candie clement Self - patient is the insured Medical (General) History Medical History History ICD Code Trichomoniasis 2019 HPV 2020 Hx of UTI Asthma Depression/anxiety Migraines without aura VVC/BV Crohn's disease 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
== END 2025-11-08 10:48 | disposition home or self-care (01) ==
PROVIDERS: Emergency Provider Emergency Medicine Emergency Medical Services
DX: J10.1 Influenza due to other identified influenza virus with other respiratory manifestations (principal); M79.10 Myalgia, unspecified site; R51.9 Headache, unspecified; R11.2 Nausea with vomiting, unspecified; R19.7 Diarrhea, unspecified; R05.9 Cough, unspecified; R50.9 Fever, unspecified
CPT/HCPCS: 87637; 99282; 99283